=== PATIENT | female | born 1970 | race Caucasian/White ===

== ENCOUNTER → 2017-11-23 | Outpatient (CLI) | payer BC | LOC: M OUTALCOH 09:35 | DX: F10.10 Alcohol abuse, uncomplicated (principal) ==

== ENCOUNTER → 2018-11-05 | Outpatient (REF) | payer BC ==
[2018-11-09 00:06] LABS: HPV HYBRID CAPTURE II Positive (Negative)
== END ==
LOC: M LAB LCGH 11:33
PROVIDERS: ATTEND Obstetrics & Gynecology
DX: Z12.4 Encounter for screening for malignant neoplasm of cervix (principal); N89.8 Other specified noninflammatory disorders of vagina; N93.9 Abnormal uterine and vaginal bleeding, unspecified
CPT/HCPCS: 87624; G0123

== ENCOUNTER → 2018-12-18 | Outpatient (REF) | LOC: M LAB LCGH 14:50 | PROVIDERS: ATTEND Obstetrics & Gynecology | DX: N80.0 Endometriosis of uterus (principal); D25.1 Intramural leiomyoma of uterus; N72 Inflammatory disease of cervix uteri ==